=== PATIENT | female | born 1975 | race Two or more races ===

== ENCOUNTER → 2023-07-24 | Day surgery (SDC) | payer OTHER | LOC: CSHSPEC 08:43 | PROVIDERS: ATTEND Nurse Practitioner Family | PROC: 05HN33Z Insertion of Infusion Device into Left Internal Jugular Vein, Percutaneous Approach (ICD-10-PCS; principal; 2023-07-24) | DX: K50.819 Crohn's disease of both small and large intestine with unspecified complications (principal); E43 Unspecified severe protein-calorie malnutrition | CPT/HCPCS: 36569; C1751 ==

== ENCOUNTER 2023-08-12 09:52 | Outpatient (CLI) | payer OTHER ==
[~2023-08-12 09:52] MED LIST: Magnevist 469MG/ML 20 ML VIAL ONE
== END 2023-08-12 09:53 | disposition home or self-care (01) ==
LOC: CSHMRI 09:52
PROVIDERS: ATTEND Internal Medicine Gastroenterology
DX: K65.1 Peritoneal abscess (principal); E53.8 Deficiency of other specified B group vitamins; K50.00 Crohn's disease of small intestine without complications; Z93.2 Ileostomy status; K80.20 Calculus of gallbladder without cholecystitis without obstruction; D50.9 Iron deficiency anemia, unspecified; K90.829 Short bowel syndrome, unspecified
CPT/HCPCS: 74183

== ENCOUNTER → 2023-10-14 | Day surgery (SDC) | payer OTHER ==
[~2023-10-14] MED LIST changes: +Lidocaine 1% PF 5 ML VIAL ONE; -Magnevist 469MG/ML 20 ML VIAL ONE; +Sodium Bicarbonate 2.5 MEQ/5 ML SDV ONE
== END ==
LOC: CSHSPEC 08:35
PROVIDERS: ATTEND Internal Medicine Gastroenterology
PROC: 05HY33Z Insertion of Infusion Device into Upper Vein, Percutaneous Approach (ICD-10-PCS; principal; 2023-10-14)
DX: K50.00 Crohn's disease of small intestine without complications (principal); K80.20 Calculus of gallbladder without cholecystitis without obstruction; E46 Unspecified protein-calorie malnutrition; E55.9 Vitamin D deficiency, unspecified; K91.2 Postsurgical malabsorption, not elsewhere classified; Z78.9 Other specified health status; Z93.2 Ileostomy status
CPT/HCPCS: 36569; C1751

== ENCOUNTER → 2023-12-12 | Day surgery (SDC) | payer OTHER | LOC: CSHSPEC 09:49 | PROVIDERS: ATTEND Family Medicine | PROC: 05HY33Z Insertion of Infusion Device into Upper Vein, Percutaneous Approach (ICD-10-PCS; principal; 2023-12-12) | DX: E43 Unspecified severe protein-calorie malnutrition (principal); K50.814 Crohn's disease of both small and large intestine with abscess; Z95.818 Presence of other cardiac implants and grafts | CPT/HCPCS: 36569; 36589 ==

== ENCOUNTER 2024-06-18 09:52 | Outpatient (CLI) | payer OTHER ==
[2024-06-18 10:56] LABS: #Basophils 0.02 10x3/uL (0.0-0.2); #Eosinphils 0.09 10x3/uL (0.0-0.5); #Monocytes 0.55 10x3/uL (0.0-1.1); #Neutrophils 3.25 10x3/uL (1.5-8.4); %Basophils 0.3 % (0.0-2.0); %Eosinophils 1.5 % (0.0-6.0); %Lymphocytes 32.5 % (18.0-47.0); %Monocytes 9.5 % (0.0-10.0); Hematocrit 39.4 % (34.9-44.5); Hemoglobin 12.4 g/dL (12.0-15.5); Mean Corpuscular HGB CONC 31.5 g/dL (32.0-36.0); Mean Corpuscular Hemoglobin 27.5 pg (27.0-33.0); Mean Corpuscular Volume 87.4 fL (81.6-98.3); Mean Platelet Volume 10.2 fL (7.4-10.4); Platelet Count 237 10x3/uL (150-450); RBC Distribution Width 13.7 % (11.5-14.5); Red Blood Cell (RBC) Count 4.51 10x6/uL (3.90-5.03); White Blood Cell (WBC) Count 5.8 10x3/uL (3.5-10.5)
[2024-06-18 13:24] LABS: ALT (SGPT) 27 U/L (8-55); AST (SGOT) 39 U/L (5-34); Albumin 3.6 g/dL (3.5-5.0); Alkaline Phosphatase 89 U/L (40-110); Anion Gap 14 mmol/L (10-20); BUN (Urea Nitrogen) 28 mg/dL (7.0-18.7); Bilirubin, Total 0.4 mg/dL (0.2-1.2); Calc. Creatinine Clearance 0 mL/min (70-130); Calcium 9.3 mg/dL (7.8-10.44); Carbon Dioxide 25 mmol/L (22-29); Chloride 103 mmol/L (98-107); Estimated GFR 85; Globulin 3.8 g/dL (2.4-3.5); Glucose 90 mg/dL (70-105); Potassium 4.8 mmol/L (3.5-5.1); Protein, Total 7.4 g/dL (6.0-8.3); Sodium 137 mmol/L (136-145)
== END 2024-06-18 09:53 | disposition home or self-care (01) ==
LOC: CSHLAB 09:52
PROVIDERS: ATTEND Specialist
DX: Z01.812 Encounter for preprocedural laboratory examination (principal); K80.20 Calculus of gallbladder without cholecystitis without obstruction
CPT/HCPCS: 80053; 85025

== ENCOUNTER 2024-07-13 07:27 | Inpatient (IN) | payer OTHER ==
[2024-07-13] MEDS ORDERED: Ketorolac Tromethamine 30 MG (1 mL) VIAL ONE ×3 (12:44→19:12)
[2024-07-13] MEDS ORDERED: Acetaminophen 500 MG TAB ONE (12:44)
[2024-07-13] MEDS ORDERED: Bupivacaine/Epinephrine 0.25% 30 ML VIAL ONE (15:26)
[2024-07-13] MEDS ORDERED: Iopamidol 0 ML ONE (15:35)
[2024-07-13] MEDS ORDERED: LevoFLOXacin D5W 500 mg (100 mL) BAG ONE (15:45)
[2024-07-13] MEDS ORDERED: Lidocaine 1% PF 5 ML VIAL ONE (15:57)
[2024-07-13] MEDS ORDERED: fentaNYL 50 mcg/mL 1 mL Vial ONE ×3 (15:57→17:24)
[2024-07-13] MEDS ORDERED: Rocuronium Bromide 10 MG/ML (10ML VIAL) ONE (15:57)
[2024-07-13] MEDS ORDERED: PROPOFOL 20 ML ONE (15:57)
[2024-07-13] MEDS ORDERED: Dexamethasone 20 MG/5 ML VIAL ONE (15:57)
[2024-07-13] MEDS ORDERED: Ondansetron PF 4 MG/2 ML Vial ONE (15:57)
[2024-07-13] MEDS ORDERED: Midazolam HCl 2 mg/2 ml Vial ONE (15:59)
[2024-07-13] MEDS ORDERED: SUGAMMADEX SODIUM 200 MG/2 ML VIAL ONE ×2 (16:15→17:33)
[2024-07-13] MEDS ORDERED: HYDROmorphone 0.5 MG/0.5 ML SYRINGE ONE ×3 (17:57→18:53)
[2024-07-13] MEDS ORDERED: Promethazine HCl 25 MG/ML VIAL IM PRN ×2 (19:00→19:47)
[2024-07-13] MEDS ORDERED: Naloxone HCl 0.4 mg/ml Vial IV PRN (19:00)
[2024-07-13] MEDS ORDERED: Ondansetron PF 4 MG/2 ML Vial IVP PRN (19:00)
[2024-07-13] MEDS ORDERED: diphenhydrAMINE 25 MG CAP PO PRN (19:00)
[2024-07-13] MEDS ORDERED: diphenhydrAMINE 50 MG/ML VIAL IM/IV PRN (19:00)
[2024-07-13] MEDS ORDERED: Zolpidem Tartrate 5 MG TAB PO PRN (19:00)
[2024-07-13] MEDS ORDERED: Dextrose 5% in Water 1,000 ML IV PRN (19:47)
[2024-07-13] MEDS ORDERED: Glucagon 1 MG/ML KIT IM PRN (19:47)
[2024-07-13] MEDS ORDERED: Ipratropium/Albuterol 3 ML NEB NEB PRN (19:47)
[2024-07-13] MEDS ORDERED: Ondansetron ODT 4 MG TAB PO PRN (19:47)
[2024-07-13] MEDS ORDERED: hydrALAZINE 20 MG/ML VIAL SLOW IVP PRN (19:47)
[2024-07-13] MEDS ORDERED: Calcium Carbonate 500 MG ChewTAB PO PRN (19:47)
[2024-07-13] MEDS ORDERED: Dextrose 50% Abboject 50 ML SYRINGE SLOW IVP PRN (19:47)
[2024-07-13] MEDS ORDERED: Promethazine 25 MG TAB PO PRN (19:47)
[2024-07-13] MEDS ORDERED: Mag-Al 1200 mg/1200 mg/30 ML UDCUP PO PRN (19:47)
[2024-07-13] MEDS: Lactated Ringer's 1,000 ML IV SCH (20:28)
[2024-07-13] MEDS: Famotidine 20 MG TAB PO SCH (22:52)
[2024-07-13] MEDS: Famotidine/PF 20 mg/2ml Vial SLOW IVP SCH (22:53)
[2024-07-13] MEDS: Melatonin 3 MG TAB PO SCH (22:54)
[2024-07-13] MEDS: Pantoprazole DR 40 MG TAB PO SCH (22:56)
[2024-07-13] MEDS ORDERED: Ketorolac Tromethamine 30 MG (1 mL) VIAL IVP SCH (23:59)
[2024-07-14] MEDS: Ketorolac Tromethamine 30 MG (1 mL) VIAL IVP SCH (00:10)
[2024-07-14] MEDS: Ondansetron PF 4 MG/2 ML Vial IVP PRN (00:11)
[2024-07-14 04:02] LABS: #Basophils 0.01 10x3/uL (0.0-0.2); #Monocytes 0.39 10x3/uL (0.0-1.1); #Neutrophils 5.11 10x3/uL (1.5-8.4); %Basophils 0.2 % (0.0-2.0); %Lymphocytes 12.7 % (18.0-47.0); %Monocytes 6.2 % (0.0-10.0); %Neutrophils 80.7 % (40.0-75.0); Hematocrit 32.6 % (34.9-44.5); Hemoglobin 10.3 g/dL (12.0-15.5); Mean Corpuscular HGB CONC 31.6 g/dL (32.0-36.0); Mean Corpuscular Hemoglobin 27.5 pg (27.0-33.0); Mean Corpuscular Volume 86.9 fL (81.6-98.3); Mean Platelet Volume 10.7 fL (7.4-10.4); Platelet Count 190 10x3/uL (150-450); RBC Distribution Width 13.1 % (11.5-14.5); Red Blood Cell (RBC) Count 3.75 10x6/uL (3.90-5.03); White Blood Cell (WBC) Count 6.3 10x3/uL (3.5-10.5)
[2024-07-14 04:09] LABS: ALT (SGPT) 41 U/L (8-55); AST (SGOT) 83 U/L (5-34); Albumin 2.8 g/dL (3.5-5.0); Alkaline Phosphatase 82 U/L (40-110); Anion Gap 13 mmol/L (10-20); BUN (Urea Nitrogen) 14 mg/dL (7.0-18.7); Bilirubin, Total 0.3 mg/dL (0.2-1.2); Calc. Creatinine Clearance 95 mL/min (70-130); Calcium 8.5 mg/dL (7.8-10.44); Carbon Dioxide 22 mmol/L (22-29); Chloride 105 mmol/L (98-107); Estimated GFR 102; Globulin 3.3 g/dL (2.4-3.5); Glucose 109 mg/dL (70-105); Potassium 4.4 mmol/L (3.5-5.1); Protein, Total 6.1 g/dL (6.0-8.3); Sodium 136 mmol/L (136-145)
[2024-07-14] MEDS: HYDROmorphone/PF 10 MG in Sodium Chloride 0.9% 49 ML IVPB PRN (06:51)
[2024-07-14] MEDS: FLU (Fluarix Triv) TS24-25(6MOS UP)/PF 45 MCG/0.5 ML Syringe IM ONE (10:50)
[2024-07-14 10:59] VITALS: BP 106/71; TEMP 98.2
== END 2024-07-14 13:00 | disposition home or self-care (01) | DRG 416 ==
LOC: EDSTATUS 09:49 → CSHERHOLD 12:02 → CSHTELE 19:35
PROVIDERS: ADMIT Specialist; ATTEND Specialist
PROC: 0FT40ZZ Resection of Gallbladder, Open Approach (ICD-10-PCS; principal; 2024-07-13)
DX: K80.12 Calculus of gallbladder with acute and chronic cholecystitis without obstruction (principal); Z88.2 Allergy status to sulfonamides; Z88.1 Allergy status to other antibiotic agents; Z79.899 Other long term (current) drug therapy
CPT/HCPCS: 36416; 80053; 85025; 88304; 94760; C1889; J1100; J1170; J1885; J1956; J2250; J2405; J2704; J3010; J3490; J7120; Q9967